=== PATIENT | female | born 1955 | race African-American/Black ===

== ENCOUNTER 2016-12-01 17:17 | Inpatient (IN) | payer SELFPAY ==
[~2016-12-01] VITALS: Ht 157.5 cm; Wt 70.8 kg
[2016-12-01] MEDS ORDERED: LISI10TA5 PO (17:32)
[2016-12-01] MEDS ORDERED: ALBU18HF2 IH (17:32)
[2016-12-01] MEDS ORDERED: MORPHINE SULFATE 4 MG/ML CPJ (NOT FOR IM USE) IV STA (19:53)
[2016-12-01] MEDS ORDERED: ONDANSETRON HCL 4MG/2ML VIAL IV STA (19:53)
[2016-12-01 20:17] LABS: BASOPHILS % 1.2 % (0.0-2.0); CHLORIDE 101 mEq/L (98-107); DIFFERENTIAL COMMENT 0; EOSINOPHILS % 2.2 % (0.0-5.0); HEMATOCRIT. 39.4 % (36.0-48.0); INDEX HEMOLYSI 1 (1-3); INDEX ICTERIC 1 (1-4); INDEX LIPEMIC 1 (1-3); LYMPHOCYTES % 31.2 % (20.0-50.0); MEAN CORPUSCULAR HEMOGLOBIN 26.5 pg (28.0-32.0); MEAN CORPUSCULAR HGB CONC 33.1 g/dL (31.0-37.0); MEAN CORPUSCULAR VOLUME 79.9 fL (81.0-99.0); MEAN PLATELET VOLUME 7.7 fl (7.4-10.4); MONOCYTES % 9.3 % (2.0-8.0); NEUTROPHILS % 56.1 % (40.0-76.0); PLATELET 441 x1000/uL (130-400); RED BLOOD CELL COUNT 4.92 mill/uL (4.2-5.4); RED CELL DISTRIBUTION WIDTH 14.9 % (11.6-14.6); WHITE BLOOD COUNT 8.5 x1000/uL (4.5-11.0)
[2016-12-01 20:19] LABS: INR 1.1
[2016-12-01 20:21] LABS: ALBUMIN 3.4 g/dL (3.4-5.0); ANION GAP 15; CALCIUM 9.3 mg/dL (8.5-10.1); CARBON DIOXIDE 27 mEq/L (21-32); LIPASE 121 IU/L (73-393); UREA NITROGEN BLOOD 6 mg/dL (7-21)
[2016-12-01 20:28] LABS: ALANINE AMINOTRANSFERASE 15 IU/L (13-61); TROPONIN I < 0.02 ng/mL (0.00-0.04); eGFR > 60 mL/min (>60)
[2016-12-01 21:24] LABS: CLARITY URINE CLEAR (CLEAR); COLOR URINE YELLOW (YELLOW); GLUCOSE URINE NEGATIVE (NEGATIVE); KETONES URINE NEGATIVE (NEGATIVE); LEUKOCYTE ESTERASE URINE TRACE (NEGATIVE); NITRITE URINE NEGATIVE (NEGATIVE); OCCULT BLOOD URINE NEGATIVE (NEGATIVE); PROTEIN URINE NEGATIVE (NEGATIVE); SPECIFIC GRAVITY URINE 1.008 (1.005-1.030); UROBILINOGEN URINE 0.2 E.U./dL (0.2-1.0)
[2016-12-01] MEDS ORDERED: METRONIDAZOLE 500 MG PREMIX 100 ML IV ONE (21:30)
[2016-12-01] MEDS ORDERED: CEFTRIAXONE 1 G PREMIX 50 ML IV ONE (21:30)
[2016-12-01 21:36] LABS: *AMPHETAMINES SCREEN URINE NEGATIVE (NEGATIVE); *BARBITURATES SCREEN URINE NEGATIVE (NEGATIVE); *BENZODIAZEPINES SCREEN URINE NEGATIVE (NEGATIVE); *COCAINE SCREEN URINE NEGATIVE (NEGATIVE); CANNABINOID URINE SCREEN PRESUMTIVE POSITIVE (NEGATIVE); ECSTASY MDMA SCREEN URINE NEGATIVE (NEGATIVE); METHADONE URINE SCREEN NEGATIVE (NEGATIVE); OPIATES URINE SCREEN PRESUMTIVE POSITIVE (NEGATIVE); PHENCYCLIDINE URINE SCREEN NEGATIVE (NEGATIVE)
[2016-12-01 21:52] LABS: RBC URINE 0-2 /hpf (0-2)
[2016-12-01 21:53] LABS: BACTERIA URINE TRACE; SQUAMOUS EPITHELIAL CELL URINE 1+ /lpf (RARE/1+)
[2016-12-01] MEDS ORDERED: ACETAMINOPHEN 650MG/20.3ML UDC PO ONE (22:00)
[2016-12-01] MEDS ORDERED: CLONIDINE 0.2MG TABLET PO PRN (22:45)
[2016-12-01] MEDS ORDERED: ONDANSETRON HCL 4MG/2ML VIAL IV PRN (22:45)
[2016-12-01] MEDS ORDERED: MORPHINE SULFATE 4 MG/ML CPJ (NOT FOR IM USE) IV PRN (22:45)
[2016-12-01] MEDS ORDERED: DIPHENHYDRAMINE 50MG/ML VIAL IV PRN (22:45)
[2016-12-01] MEDS ORDERED: IPRATROPIUM/ALBUTEROL 0.5-3(2.5)MG/3ML NEB INH PRN (22:45)
[2016-12-02 05:00] VITALS: BP 156/93
[2016-12-02] MEDS ORDERED: SODIUM CHLORIDE 0.9% 1,000 ML IV SCH (05:00)
[2016-12-02] MEDS: ACETAMINOPHEN 325MG TABLET PO PRN ×2 (05:14→22:27)
[2016-12-02] MEDS ORDERED: LEVOFLOXACIN 500MG PREMIX 100 ML IV SCH (06:00)
[2016-12-02] MEDS: METRONIDAZOLE 500 MG PREMIX 100 ML IV SCH ×3 (06:11→22:22)
[2016-12-02] MEDS ORDERED: POTASSIUM CHLORIDE INJ 40 MEQ in DEXT 5% WATER 250 ML IV ONE (06:30)
[2016-12-02 08:00] VITALS: BP 112/68
[2016-12-02 08:09] LABS: BASOPHILS % 1.4 % (0.0-2.0); EOSINOPHILS % 4.1 % (0.0-5.0); HEMATOCRIT. 36.9 % (36.0-48.0); HEMOGLOBIN. 12.2 g/dL (12.0-16.0); MEAN CORPUSCULAR HEMOGLOBIN 26.4 pg (28.0-32.0); MEAN CORPUSCULAR HGB CONC 33.1 g/dL (31.0-37.0); MEAN CORPUSCULAR VOLUME 79.8 fL (81.0-99.0); MEAN PLATELET VOLUME 7.8 fl (7.4-10.4); MONOCYTES % 12.7 % (2.0-8.0); NEUTROPHILS % 45.8 % (40.0-76.0); PLATELET 396 x1000/uL (130-400); RED BLOOD CELL COUNT 4.62 mill/uL (4.2-5.4); RED CELL DISTRIBUTION WIDTH 14.5 % (11.6-14.6); WHITE BLOOD COUNT 5.8 x1000/uL (4.5-11.0)
[2016-12-02 08:11] LABS: ADD RBC MORPHOLOGY YES; DIFFERENTIAL COMMENT 1
[2016-12-02 08:28] LABS: ANION GAP 11; CARBON DIOXIDE 30 mEq/L (21-32); CHLORIDE 102 mEq/L (98-107); INDEX HEMOLYSI 1 (1-3); INDEX ICTERIC 1 (1-4); INDEX LIPEMIC 1 (1-3); MAGNESIUM 2.1 mg/dL (1.8-2.4); UREA NITROGEN BLOOD 7 mg/dL (7-21); eGFR > 60 mL/min (>60)
[2016-12-02] MEDS: LISINOPRIL 20MG TABLET PO SCH ×2 (09:00→21:00)
[2016-12-02] MEDS ORDERED: POTASSIUM CHLORIDE 20MEQ TABLET SR PO NR ×2 (10:00→23:45)
[2016-12-02] MEDS: LEVOFLOXACIN 500MG PREMIX 100 ML IV SCH (10:42)
[2016-12-02 12:00] VITALS: BP 124/83
[2016-12-02 16:00] VITALS: BP 113/87
[2016-12-02 16:13] LABS: PLATELET ESTIMATE NORMAL
[2016-12-02 16:27] LABS: HYPOCHROMASIA 1+
[2016-12-02 20:00] VITALS: BP 106/68
[2016-12-03] VITALS: BP 126/74
[2016-12-03 04:00] VITALS: BP 113/75
[2016-12-03] MEDS: METRONIDAZOLE 500 MG PREMIX 100 ML IV SCH (05:52)
[2016-12-03 08:00] VITALS: BP 128/88
[2016-12-03] MEDS: LISINOPRIL 20MG TABLET PO SCH (09:03)
[2016-12-03] MEDS: LEVOFLOXACIN 500MG PREMIX 100 ML IV SCH (11:08)
[2016-12-03 12:00] VITALS: BP 119/72
[2016-12-03 14:59] VITALS: BP 119/72
== END 2016-12-03 15:40 | disposition home or self-care (01) | DRG 244 ==
LOC: ER 17:19 → 7WST 12-02 01:43
PROVIDERS: ADMIT Internal Medicine; ATTEND Internal Medicine
DX: K57.32 Diverticulitis of large intestine without perforation or abscess without bleeding (principal); N39.0 Urinary tract infection, site not specified; I10 Essential (primary) hypertension; J45.909 Unspecified asthma, uncomplicated; Z60.2 Problems related to living alone; E87.6 Hypokalemia; Z83.3 Family history of diabetes mellitus; Z82.49 Family history of ischemic heart disease and other diseases of the circulatory system
CPT/HCPCS: 36415; 70450; 71010; 74176; 80048; 80053; 80305; 81001; 82378; 83605; 83690; 83735; 84484; 85025; 85610; 87040; 93005; 96365; 96368; 99285; C1893; J0696; J1956; J3480; J3490; J7030; J7060